=== PATIENT | male | born 1950 | race Two or more races ===

== ENCOUNTER 2018-10-10 06:31 | Day surgery (SDC) | payer OTHER ==
[~2018-10-10 06:31] MED LIST: HYZAAR 50-12.51 EACH PO; LIPITOR20 MG PO
[2018-10-10] MEDS ORDERED: PERCOCET 5-3251 EACH PO (08:39)
== END 2018-10-10 10:29 | disposition home or self-care (01) ==
LOC: CIR.AMB 06:31
DX: D35.1 Benign neoplasm of parathyroid gland (principal)